=== PATIENT | female | born 1945 | race Caucasian/White ===

== ENCOUNTER 2018-01-23 17:48 | Emergency (ER) | payer OTHER, MEDICAID ==
[2018-01-23] MEDS: IPRATROPIUM (NEB) 0.5 MG/2.5 ML AMP HHN (20:55)
[2018-01-23] MEDS: ALBUTEROL 0.083% (NEB) 2.5 MG/3 ML AMP HHN (20:55)
[2018-01-23] MEDS: predniSONE 20 MG TAB PO (21:12)
[2018-01-23] MEDS: AMOXICILLIN/CLAV 875 MG TAB PO (21:12)
== END 2018-01-23 22:36 | disposition home or self-care (01) ==
LOC: FTE 17:48
DX: J20.9 Acute bronchitis, unspecified (principal); I10 Essential (primary) hypertension; E11.9 Type 2 diabetes mellitus without complications; E03.9 Hypothyroidism, unspecified; Z79.84 Long term (current) use of oral hypoglycemic drugs
CPT/HCPCS: 94664; 99284-25

== ENCOUNTER 2019-03-26 12:22 | Day surgery (SDC) | payer MEDICARE, OTHER ==
[~2019-03-26 12:22] MED LIST: CEFAZOLIN 2 GM/50 ML (PMX) 50 ML IVPB; LACTATED RINGER'S 1,000 ML IV
[2019-03-26] MEDS ORDERED: BUPIVACAINE 0.25% (MPF) 30 ML INJ (13:57)
[2019-03-26] MEDS ORDERED: TRIAMCINOLONE ACET 40 MG/ML INJ (13:57)
[2019-03-26] MEDS ORDERED: FENTAnyl 50 MCG/ML VIAL (14:39)
[2019-03-26] MEDS ORDERED: MIDAZOLAM 1 MG/ML 2 ML INJ (14:39)
[2019-03-26] MEDS ORDERED: PROPOFOL 100 ML (14:40)
[2019-03-26] MEDS ORDERED: LIDOCAINE 2% (SDV) 5 ML INJ (15:35)
[2019-03-26] MEDS ORDERED: CEFAZOLIN 1 GM INJ (15:35)
[2019-03-26] MEDS ORDERED: DIPHENHYDRAMINE 50 MG INJ IV (16:00)
[2019-03-26] MEDS ORDERED: EPHEDrine 25 MG/5 ML SYG IV (16:00)
[2019-03-26] MEDS ORDERED: MIDAZOLAM 1 MG/ML 2 ML INJ IV (16:00)
[2019-03-26] MEDS ORDERED: ALBUTEROL 0.083% (NEB) 2.5 MG/3 ML AMP HHN (16:00)
[2019-03-26] MEDS ORDERED: ALBUMIN HUMAN 5% 250 ML IV (16:00)
[2019-03-26] MEDS ORDERED: ONDANSETRON 4 MG INJ IV (16:00)
[2019-03-26] MEDS ORDERED: OXYCODONE/ACETAMINOPHEN (5/325) TAB PO ×2 (16:00)
[2019-03-26] MEDS ORDERED: KETOROLAC 30 MG INJ IV (16:00)
[2019-03-26] MEDS ORDERED: hydrALAzine 20 MG INJ IV (16:00)
[2019-03-26] MEDS ORDERED: FENTAnyl 50 MCG/ML VIAL IV ×3 (16:00)
[2019-03-26] MEDS ORDERED: MEPERIDINE 25 MG INJ IV (16:00)
[2019-03-26] MEDS ORDERED: LABETALOL HCL 20MG INJ IV (16:00)
[2019-03-26] MEDS ORDERED: METOCLOPRAMIDE 10 MG INJ IV (16:00)
== END 2019-03-26 17:33 | disposition home or self-care (01) ==
LOC: SDS 12:22
DX: M20.42 Other hammer toe(s) (acquired), left foot (principal); E11.9 Type 2 diabetes mellitus without complications; E78.5 Hyperlipidemia, unspecified; E03.9 Hypothyroidism, unspecified; Z85.9 Personal history of malignant neoplasm, unspecified; G20 Parkinson's disease; Z79.84 Long term (current) use of oral hypoglycemic drugs; Z79.4 Long term (current) use of insulin; I25.2 Old myocardial infarction; E66.01 Morbid (severe) obesity due to excess calories; Z68.41 Body mass index [BMI] 40.0-44.9, adult
CPT/HCPCS: 28285; 82962